=== PATIENT | female | born 1975 | race Caucasian/White ===

== ENCOUNTER 2020-09-17 09:18 | Day surgery (SDC) | payer OTHER ==
[2020-09-13 14:52] LABS: COVID AG,FIA SOURCE NASOPHARYNGEAL
[~2020-09-17] VITALS: Ht 157.5 cm; Wt 84.0 kg
[~2020-09-17 09:18] MED LIST: RINGERS SOLUTION,LACTATED 1,000 ML IV ONE
[2020-09-17] MEDS ORDERED: LIDOCAINE/PF 2% 5 ML VIAL IM ONE (09:19)
[2020-09-17] MEDS ORDERED: FentaNYL CITRATE PF 100 MCG/2 ML VIAL IVP ONE (09:19)
[2020-09-17] MEDS ORDERED: MIDAZOLAM HCL 2 MG/2 ML VIAL IVP ONE (09:19)
[2020-09-17] MEDS ORDERED: PROPOFOL 1% 20 ML VIAL IVP ONE (09:19)
[2020-09-17] MEDS ORDERED: RINGERS SOLUTION,LACTATED 1,000 ML IV ONE (09:30)
[2020-09-17] MEDS ORDERED: BACITRACIN 28 GM OINTMENT TP ONE (10:52)
[2020-09-17] MEDS ORDERED: BUPIVACAINE HCL/PF 0.5% 30 ML VIAL ONE (10:52)
[2020-09-17] MEDS ORDERED: MEPERIDINE-PF 25 MG/ML VIAL IVP PRN (11:00)
[2020-09-17] MEDS ORDERED: HYDROmorphone 2 MG/ML VIAL IVP PRN (11:00)
[2020-09-17] MEDS ORDERED: FentaNYL CITRATE PF 100 MCG/2 ML VIAL IVP PRN (11:00)
[2020-09-17] MEDS ORDERED: OXYGEN THERAPY IH SCH (20:00)
== END 2020-09-17 12:30 | disposition home or self-care (01) ==
LOC: SURGERY 09:18
PROVIDERS: ATTEND Orthopaedic Surgery
DX: G56.01 Carpal tunnel syndrome, right upper limb (principal); M65.841 Other synovitis and tenosynovitis, right hand; Z79.899 Other long term (current) drug therapy; Z90.49 Acquired absence of other specified parts of digestive tract; Z98.890 Other specified postprocedural states
CPT/HCPCS: 25115; 36415; 64721; 64727; 84703; 87426; C9803; J2250; J2704; J3010; J3490 ×2; J7120